=== PATIENT | male | born 1955 | race African-American/Black ===

== ENCOUNTER 2018-08-16 10:59 | Emergency (ER) | payer OTHER ==
[~2018-08-16] VITALS: Ht 180.3 cm; Wt 113.4 kg
[2018-08-16] MEDS ORDERED: Morphine Sulfate 4mg/ml Inj (IV USE ONLY) IVP ONE ×2 (11:15→11:30)
[2018-08-16] MEDS ORDERED: Isovue-300 100ml vial INJ PRN (11:15)
[2018-08-16 11:41] LABS: BASOPHILS % (AUTO) 2.1 % (0.0-2.0); EOSINOPHILS % (AUTO) 0.2 % (0.0-3.0); HEMATOCRIT 47.5 % (42.0-52.0); HEMOGLOBIN 15.4 G/DL (14.2-18.0); LYMPHOCYTES % (AUTO) 28.7 % (20.0-45.0); MEAN CORPUSCULAR VOLUME 96 FL (80-99); MONOCYTES % (AUTO) 5.2 % (1.0-10.0); NEUTROPHILS % (AUTO) 63.9 % (45.0-75.0); PLATELET COUNT 273 K/UL (150-450); RED BLOOD COUNT 4.97 M/UL (4.70-6.10); RED CELL DISTRIBUTION WIDTH 11.7 % (11.6-14.8); WHITE BLOOD COUNT 7.8 K/UL (4.8-10.8)
[2018-08-16 11:42] LABS: APPEARANCE,URINE CLEAR; BILIRUBIN, URINE NEGATIVE (NEGATIVE); COLOR,URINE PALE YELLOW; GLUCOSE, URINE (UA) NEGATIVE (NEGATIVE); KETONES,URINE 1+ (NEGATIVE); LEUKOCYTE ESTERASE ,URINE NEGATIVE (NEGATIVE); NITRITE,URINE NEGATIVE (NEGATIVE); PH,URINE 6.5 (4.5-8.0); PROTEIN,URINE 2+ (NEGATIVE); UROBILINOGEN,URINE NORMAL MG/DL (0.0-1.0)
[2018-08-16 11:51] LABS: ANION GAP 17 mmol/L (5-15); BLOOD UREA NITROGEN 15 mg/dL (7-18); CALCIUM 10.7 MG/DL (8.5-10.1); CARBON DIOXIDE 20 MMOL/L (21-32); CHLORIDE 107 MMOL/L (98-107); CREATININE 1.3 MG/DL (0.55-1.30); POTASSIUM 3.9 MMOL/L (3.5-5.1); SODIUM 144 MMOL/L (136-145)
[2018-08-16 12:05] LABS: ALANINE AMINOTRANSFERASE 42 U/L (12-78); ALBUMIN 4.4 G/DL (3.4-5.0); ALBUMIN/GLOBULIN RATIO 1.2 (1.0-2.7); ALKALINE PHOSPHATASE 87 U/L (46-116); ASPARTATE AMINO TRANSFERASE 22 U/L (15-37); BILIRUBIN,TOTAL 0.7 MG/DL (0.2-1.0); CKMB 0.9 NG/ML (0.0-3.6); CREATINE KINASE 87 U/L (26-308)
--- NOTE | 2018-08-16 12:11 | NUR ---
ED Nurse Note: pt from home came in via RA c/o n/v and abd pain amy middleton done blood and urine sent pt medicated down to ct now.
--- NOTE | 2018-08-16 12:19 | Diagnostic Imaging Report ---
Indication: Chest pain Technique: XRAY Chest 1v Comparison: None Findings: Question mild cardiomegaly. Mediastinal contours are sharp. Mild haziness of the pulmonary vascularity is noted. No definite focal airspace consolidation. No pleural effusion or pneumothorax. Degenerative changes of the spine. No acute osseous normality. Impression: Cardiomegaly with mild haziness of the pulmonary vascularity suggesting mild congestive changes/fluid overload. No focal airspace consolidation, pleural effusion, pneumothorax or evidence of alveolar edema.
[2018-08-16 12:30] VITALS: BP 201/74
--- NOTE | 2018-08-16 12:49 | NUR ---
ED Nurse Note: EJ removed due to infiltration. no s/s of infection noted.
--- NOTE | 2018-08-16 13:00 | Diagnostic Imaging Report ---
Indication: Abdominal pain with nausea and vomiting Technique: CT of the abdomen and pelvis utilizing automated exposure control with intravenous contrast. Venous scanning performed. Axial, sagittal and coronal reformats presented. CT dose: Total DLP 1042.25 mGycm; CTDI vol 19.07 mGy Comparison: None Findings: Note that only limited IV contrast was administered. Per educational technologist there was extravasation during administration of IV contrast and the injection was stopped prematurely. Treating emergency room RN informed of the extravasation, as documented in the technologist report. Minimal dependent atelectatic changes noted in the lung bases. Heart size appears within the upper limits for normal. No focal airspace consolidation or evidence of pulmonary edema is noted. Liver is normal in size and contour. No focal hepatic mass lesion noted on this exam however note limitations of suboptimal contrast opacification. Hepatic contour appears smooth. Patient is status post cholecystectomy. No biliary ductal dilatation. Spleen, adrenal glands and pancreas unremarkable. Bilateral nonspecific perinephric stranding is noted. There is a punctate nonobstructing stone in the upper pole the left kidney. There is no evidence of hydronephrosis. Bladder is unremarkable in appearance. Prostate, seminal vesicles markable. A possible left hydrocele is partially visualized. There is a small fat-containing right inguinal hernia. There is no free intraperitoneal air or fluid. There is no evidence of bowel obstruction. A few scattered colonic diverticula are noted without evidence to suggest acute diverticulitis. The appendix is normal. No periappendiceal inflammatory changes. No definite inflammatory changes noted within the mesentery. Abdominal aorta is normal in caliber. There are atherosclerotic vascular calcifications. No pathologically enlarged lymphadenopathy identified. There is no acute osseous abnormality. Some degenerative changes noted in the spine. IMPRESSION: Note that only limited IV contrast was administered. Per educational technologist there was extravasation during administration of IV contrast and the injection was stopped prematurely. Treating emergency room RN informed of the extravasation, as documented in the technologist report. * Few scattered colonic diverticula. No evidence of acute diverticulitis. * No evidence of bowel obstruction or definite inflammatory stranding in the mesentery. No free air or fluid. Normal appendix. * Status post cholecystectomy. * Punctate nonobstructing stone in the upper pole the left kidney. No evidence of hydronephrosis bilaterally. * Nonspecific bilateral perinephric stranding. Consider correlation with urinalysis. Additional incidental findings as above. The CT scanner at [facility] is accredited by the [employer] and the scans are performed using protocols designed to limit radiation exposure to as low as reasonably achievable to attain images of sufficient resolution adequate for diagnostic evaluation.
[2018-08-16] MEDS ORDERED: HYDROmorphone 1mg/ml Carpuject IM ONE (13:15)
[2018-08-16] MEDS ORDERED: Lidocaine 1% Plain 30 ml INJ ONE (13:15)
[2018-08-16] MEDS ORDERED: Heparin1,000 units/500ml Premix(Conc:2 units/ml) IV ONE (13:15)
--- NOTE | 2018-08-16 13:44 | Emergency Room Report ---
History of Present Illness General Chief Complaint: Abdominal Pain Source: Patient, EMS Present Illness HPI Patient presents emergency department today with severe abdominal pain. He states that it occurred acutely today associated nausea vomiting and shortness of breath. He denies chest pain. Patient appeared diaphoretic. Patient arrived here via paramedics. No other complaints are noted. Symptoms noted to be severe. No other modifying factors. No other associated signs and symptoms. No other complaints were noted. Allergies: Coded Allergies: No Known Allergies (Unverified , 08/16/18) Patient History Past Medical History: HTN, CAD, other - Gallstones Past Surgical History: none Pertinent Family History: none Social History: Denies: smoking, alcohol use, drug use Reviewed Nursing Documentation: PMH: Agreed; PSxH: Agreed Nursing Documentation-PMH Past Medical History: No History, Except For Hx Cardiac Problems: Yes Hx Hypertension: Yes Hx Gastrointestinal Problems: Yes - Gallstone Review of Systems All Other Systems: negative except mentioned in HPI Physical Exam Vital Signs Date Time Temp Pulse Resp B/P (MAP) Pulse Ox O2 Delivery O2 Flow Rate FiO2 08/16/18 10:56 72 22 184/82 (116) 99 Room Air Sp02 EP Interpretation: reviewed, normal General Appearance: alert, moderate distress Head: normocephalic, atraumatic Eyes: bilateral eye normal inspection ENT: normal ENT inspection, hearing grossly normal, normal voice Neck: normal inspection, full range of motion, supple, no bony tend Respiratory: normal inspection, lungs clear, normal breath sounds, no respiratory distress, no retraction, no wheezing Cardiovascular #1: regular rate, rhythm, no edema Gastrointestinal: normal inspection, normal bowel sounds, soft, no guarding, no hernia, tenderness - Epigastrium Genitourinary: no CVA tenderness Musculoskeletal: normal inspection, back normal, normal range of motion Neurologic: normal inspection, alert, responsive, speech normal Psychiatric: normal inspection, judgement/insight normal, anxious Skin: no rash, pallor Procedures Critical Care Time Critical Care Time Patient had a critical medical condition which untreated could potentially result in life or limb threatening injury. Total critical care time excluding procedures was approximately 45 minutes. Additional Procedure Procedure Narrative Patient required external jugular access. Using sterile technique patient's jugular vein was cannulated. There is no competitions associated with procedure patient tolerated procedure well difficulty. There was good blood flow. EJ was performed on the right Medical Decision Making Diagnostic Impression: Primary Impression: Pancreatitis Additional Impression: Sudden onset of severe abdominal pain ER Course Patient presents to the emergency department today complaining of abdominal pain. Differential considerations include acute pancreatitis, cholecystitis, gastritis, hepatitis, appendicitis just to name a few. Given the severity of the patient's presentation I felt this is a highly complex patient. This patient required extensive workup. Because of severity patient presentation is initially considered to be a critical patient. Patient required peripheral IV access. External jugular was placed on patient's right side of neck. Blood was obtained patient is given fluids as well as pain medications and he felt better. Patient went to CT scan. Unfortunately while patient was in CT the external jugular vein was infiltrated with the injection of IV contrast. A external jugular was attempted on the left this was unsuccessful. Because of this a peripheral IV will be established with 3 ultrasound. Patient will require admission for further treatment. Patient laboratory work-up does show an elevated lipase which could be consistent with patient's symptoms. Patient was given fluids and felt better. Will discuss case with admitting physician. Labs Test 08/16/18 11:20 08/16/18 11:30 White Blood Count 7.8 K/UL (4.8-10.8) Red Blood Count 4.97 M/UL (4.70-6.10) Hemoglobin 15.4 G/DL (14.2-18.0) Hematocrit 47.5 % (42.0-52.0) Mean Corpuscular Volume 96 FL (80-99) Mean Corpuscular Hemoglobin 30.9 PG (27.0-31.0) Mean Corpuscular Hemoglobin Concent 32.3 G/DL (32.0-36.0) Red Cell Distribution Width 11.7 % (11.6-14.8) Platelet Count 273 K/UL (150-450) Mean Platelet Volume 6.4 FL (6.5-10.1) Neutrophils (%) (Auto) 63.9 % (45.0-75.0) Lymphocytes (%) (Auto) 28.7 % (20.0-45.0) Monocytes (%) (Auto) 5.2 % (1.0-10.0) Eosinophils (%) (Auto) 0.2 % (0.0-3.0) Basophils (%) (Auto) 2.1 % (0.0-2.0) Prothrombin Time 10.3 SEC (9.30-11.50) Prothromb Time International Ratio 1.0 (0.9-1.1) Activated Partial Thromboplast Time 26 SEC (23-33) Sodium Level 144 MMOL/L (136-145) Potassium Level 3.9 MMOL/L (3.5-5.1) Chloride Level 107 MMOL/L (98-107) Carbon Dioxide Level 20 MMOL/L (21-32) Anion Gap 17 mmol/L (5-15) Blood Urea Nitrogen 15 mg/dL (7-18) Creatinine 1.3 MG/DL (0.55-1.30) Estimat Glomerular Filtration Rate 55.6 mL/min (>60) Glucose Level 122 MG/DL (74-106) Calcium Level 10.7 MG/DL (8.5-10.1) Total Bilirubin 0.7 MG/DL (0.2-1.0) Aspartate Amino Transf (AST/SGOT) 22 U/L (15-37) Alanine Aminotransferase (ALT/SGPT) 42 U/L (12-78) Alkaline Phosphatase 87 U/L (46-116) Total Creatine Kinase 87 U/L (26-308) Creatine Kinase MB 0.9 NG/ML (0.0-3.6) Creatine Kinase MB Relative Index 1.0 Troponin I 0.000 ng/mL (0.000-0.056) Total Protein 8.0 G/DL (6.4-8.2) Albumin 4.4 G/DL (3.4-5.0) Globulin 3.6 g/dL Albumin/Globulin Ratio 1.2 (1.0-2.7) Lipase 434 U/L (73-393) Urine Color Pale yellow Urine Appearance Clear Urine pH 6.5 (4.5-8.0) Urine Specific [place] 1.010 (1.005-1.035) Urine Protein 2+ (NEGATIVE) Urine Glucose (UA) Negative (NEGATIVE) Urine Ketones 1+ (NEGATIVE) Urine Blood 2+ (NEGATIVE) Urine Nitrite Negative (NEGATIVE) Urine Bilirubin Negative (NEGATIVE) Urine Urobilinogen Normal MG/DL (0.0-1.0) Urine Leukocyte Esterase Negative (NEGATIVE) Urine RBC 0-2 /HPF (0 - 0) Urine WBC 0 /HPF (0 - 0) Urine Squamous Epithelial Cells Occasional /LPF Urine Bacteria Occasional /HPF (NONE) EKG Diagnostic Results Rate: normal Rhythm: NSR ST Segments: no acute changes Rhythm Strip Diag. Results EP Interpretation: yes Rate: 70 Rhythm: NSR, no PVC's, no ectopy Chest X-Ray Diagnostic Results Chest X-Ray Diagnostic Results : Chest X-Ray Ordered: Yes # of Views/Limited/Complete: 1 View Indication: Shortness of Breath EP Interpretation: No Impression: No acute disease CT/MRI/US Diagnostic Results CT/MRI/US Diagnostic Results : Imaging Test Ordered: CT abdomen pelvis: Interpreted by radiology to be negative. Last Vital Signs Date Time Temp Pulse Resp B/P (MAP) Pulse Ox O2 Delivery O2 Flow Rate FiO2 08/16/18 10:56 72 22 184/82 (116) 99 Room Air Status: improved Disposition: ADMITTED INPATIENT Condition: Serious Hayes Jarrett MD Aug 16, 2018 13:44
[2018-08-16] MEDS ORDERED: HYDROmorphone 1mg/ml Carpuject IVP ONE (15:45)
[2018-08-16] MEDS ORDERED: LORazepam Inj 2mg/ml 1ml IV ONE (15:45)
[2018-08-16 16:30] VITALS: BP 175/56
[2018-08-16 17:03] VITALS: BP 166/56
--- NOTE | 2018-08-16 17:21 | NUR ---
ED Nurse Note: report called to [facility] NSG Sup Les.
[2018-08-16 17:25] VITALS: BP 166/56
--- NOTE | 2018-08-16 18:05 | NUR ---
ED Nurse Note: pt piicked up via [employer] ED Nurse Note: Pt cleared by health care Provider for discharge.was given and explained to pt and verbalized understanding of teachings. All medical deviecs such as ID band removed. Pt is AAO x4, ambulatory and left with all personal belongings.
[2018-08-16] MEDS ORDERED: Dyna-Hex 2% Top Sol 2oz TOPIC SCH (20:00)
== END 2018-08-16 18:07 | disposition short-term general hospital (02) ==
LOC: EDBD 10:59 → EMR 11:38
DX: K85.90 Acute pancreatitis without necrosis or infection, unspecified (principal); R10.9 Unspecified abdominal pain; I11.9 Hypertensive heart disease without heart failure; R11.2 Nausea with vomiting, unspecified
CPT/HCPCS: 36415; 71045; 74177; 80053; 81003; 82550; 82553; 83690; 84484; 85025; 85610; 85730; 93005; 96374; 96375; 96376; 99291; J1170; J1644; J2270; J2405; J7040; Q9967; S0028